=== PATIENT | male | born 1990 | race Two or more races ===

== ENCOUNTER 2023-09-11 15:20 | Inpatient (IN) | payer MEDICAID ==
[~2023-09-11] VITALS: Ht 182.9 cm; Wt 104.3 kg
[2023-09-11 15:20] VITALS: BP 115/80; PULSE 115; RESP 14; TEMP 96.9; O2SAT 100
[2023-09-11] MEDS ORDERED: NALOXONE PFS 2 MG/2 ML SYR ONE (15:58)
[2023-09-11] MEDS ORDERED: NACL 0.9% 1,000 ML IV ONE (16:25)
[2023-09-11] MEDS ORDERED: ONDANSETRON 4 MG/2 ML VIAL IVP ONE (16:40)
[2023-09-11] MEDS ORDERED: ONDANSETRON 4 MG/2 ML VIAL ONE (16:41)
[2023-09-11 17:09] LABS: BASOPHILS # (AUTO) 0.1 K/uL (0.00-0.22)
[2023-09-11 17:13] LABS: BASOPHILS % (AUTO) 0.2 % (0.0-2.0); HEMATOCRIT 44.9 % (36-52); HEMOGLOBIN 14.6 g/dL (12.0-18.0); LYMPHOCYTES # (AUTO) 1.4 K/uL (2.0-11.5); LYMPHOCYTES % (AUTO) 5.7 % (20.5-51.1); MEAN CORPUSCULAR HEMOGLOBIN 28 pg (27-31); MEAN CORPUSCULAR HGB CONC 32 g/dL (33-37); MEAN CORPUSCULAR VOLUME 87.4 fL (80-94); MONOCYTES # (AUTO) 1.8 K/uL (0.8-1.0); MONOCYTES % (AUTO) 7.3 % (1.7-9.3); NEUTROPHILS # (AUTO) 21.1 K/uL (1.8-7.7); NEUTROPHILS % (AUTO) 86.8 % (42.2-75.2); PLATELET COUNT (AUTO) 303 K/uL (140-450); RED BLOOD CELL COUNT(AUTO) 5.14 MIL/uL (4.20-6.10); RED CELL DISTRIBUTION WIDTH 13.8 % (11.6-13.7); WHITE BLOOD COUNT (AUTO) 24.3 K/uL (4.8-10.8)
[2023-09-11 17:34] LABS: ALANINE AMINOTRANSFERASE 53 U/L (12-78); ALBUMIN 4.2 g/dL (3.4-5.0); ALCOHOL, BLOOD < 3 mg/dL (<10); ALKALINE PHOSPHATASE 82 U/L (50-136); ANION GAP 14.2 (8-16); ASPARTATE AMINOTRANSFERASE 65 U/L (15-37); CALCIUM 8.7 mg/dL (8.5-10.1); CARBON DIOXIDE 30.6 mmol/L (21-32); CHLORIDE 103 mmol/L (98-107); CREATININE 1.9 mg/dL (0.6-1.3); GFR ARICAN-AMERICAN 51 mL/min (>90); GFR NON ARICAN-AMERICAN 42 mL/min (>90); GLUCOSE 75 mg/dL (74-106); POTASSIUM 5.8 mmol/L (3.5-5.1); SODIUM SERUM 142 mmol/L (136-145); TOTAL BILIRUBIN 0.3 mg/dL (0.0-1.0); TOTAL PROTEIN, SERUM 7.6 g/dL (6.4-8.2); UREA NITROGEN, BLOOD 32 mg/dL (7-18)
[2023-09-11 17:35] LABS: SALICYLATE < 2.8 mg/dL (2.8-20.0)
[2023-09-11] MEDS ORDERED: INSULIN REGULAR, HUMAN 100 UNIT/ML VIAL IVP ONE (17:55)
[2023-09-11] MEDS ORDERED: DEXTROSE 50% 50 ML SYR IVP ONE ×2 (17:55→18:20)
[2023-09-11] MEDS ORDERED: NACL 0.9% 1,000 ML IV SCH (17:55)
[2023-09-11] MEDS ORDERED: cefTRIAXone 1,000 MG VIAL ONE (18:10)
[2023-09-11 18:16] LABS: ACETAMINOPHEN < 0.5 ug/ml (10-30)
[2023-09-11 19:22] LABS: LACTIC ACID 2.6 mmol/L (0.4-2.0)
[2023-09-11] MEDS ORDERED: ASPIRIN 325 MG TAB PO ONE (19:35)
[2023-09-11] MEDS ORDERED: POTASSIUM CHLORIDE 10 MEQ TABER PO PRN (20:45)
[2023-09-11] MEDS ORDERED: ONDANSETRON 4 MG/2 ML VIAL IM/IVP PRN (20:45)
[2023-09-11] MEDS ORDERED: DOCUSATE SODIUM 100 MG GELCAP PO PRN (20:45)
[2023-09-11] MEDS ORDERED: ZOLPIDEM 5 MG TAB PO PRN (20:45)
[2023-09-11] MEDS ORDERED: ACETAMINOPHEN 325 MG TAB PO PRN (20:45)
[2023-09-11] MEDS ORDERED: guaiFENesin DM 200/20 MG-10 ML 10 ML UDC PO PRN (20:45)
[2023-09-11] MEDS ORDERED: HYDROcodone/APAP 7.5/325 MG 1 TAB PO PRN (20:45)
[2023-09-11] MEDS: NACL 0.9% 1,000 ML IV SCH (21:00)
[2023-09-11 21:24] LABS: APPEARANCE,URINE CLEAR (CLEAR); BILIRUBIN,URINE NEGATIVE (NEGATIVE); BLOOD, URINE NEGATIVE (NEGATIVE); COLOR,URINE YELLOW (YELLOW); LEUKOCYTE ESTERASE ,URINE NEGATIVE (NEGATIVE); NITRITE, URINE NEGATIVE (NEGATIVE); PROTEIN,URINE 1+ (NEGATIVE); UGLUCOSE 1+ (NEGATIVE); UROBILINOGEN,URINE 0.2 EU/dL (0.2 - 1)
[2023-09-11 21:26] LABS: RBC,URINE 0-5 /HPF (0-5)
[2023-09-11 21:27] LABS: BACTERIA,URINE 0-2 /HPF (None Seen); MUCUS,URINE None Seen /LPF (None Seen); SQUAMOUS EPITHELIAL CELL,UR 0-3 (FEW) /LPF (0-3 (FEW)); WBC,URINE 0-5 /HPF (0-5)
[2023-09-11 21:35] LABS: AMPHETAMINE, URINE POSITIVE ng/ml (NEG <=1000); BARBITURATE, URINE NEGATIVE ng/ml (NEG <=200); BENZODIAZEPINE, URINE NEGATIVE ng/mL (NEG <=200); CANNABINOID, URINE NEGATIVE ng/mL (NEG <=50); COCAINE, URINE NEGATIVE ng/mL (NEG <=300); OPIATE, URINE NEGATIVE ng/mL (NEG <=2000); PHENCYCLIDINE SCREEN,URINE NEGATIVE ng/mL (NEG <=25)
[2023-09-11] MEDS ORDERED: SODIUM POLYSTYRENE 15 GM/60 ML UDBTL PO ONE (21:50)
[2023-09-11 22:40] VITALS: PULSE 97
[2023-09-11 22:44] VITALS: BP 113/64; PULSE 97; RESP 18; TEMP 98.1; O2SAT 96
[2023-09-11] MEDS ORDERED: SODIUM POLYSTYRENE 15 GM/60 ML UDBTL ONE (23:09)
[2023-09-12] VITALS: PULSE 93
[2023-09-12 04:00] VITALS: BP 110/60; PULSE 100; PULSE 99; RESP 20; TEMP 98.5; O2SAT 98
[2023-09-12 05:53] LABS: BASOPHILS % (AUTO) 0.2 % (0.0-2.0); EOSINOPHILS % (AUTO) 0.3 % (0.0-4.0); HEMATOCRIT 38.2 % (36-52); HEMOGLOBIN 12.6 g/dL (12.0-18.0); LYMPHOCYTES # (AUTO) 2.5 K/uL (2.0-11.5); LYMPHOCYTES % (AUTO) 17.3 % (20.5-51.1); MEAN CORPUSCULAR HEMOGLOBIN 29 pg (27-31); MEAN CORPUSCULAR HGB CONC 33 g/dL (33-37); MEAN CORPUSCULAR VOLUME 86.6 fL (80-94); MONOCYTES # (AUTO) 1.4 K/uL (0.8-1.0); MONOCYTES % (AUTO) 9.8 % (1.7-9.3); NEUTROPHILS # (AUTO) 10.6 K/uL (1.8-7.7); NEUTROPHILS % (AUTO) 72.4 % (42.2-75.2); PLATELET COUNT (AUTO) 249 K/uL (140-450); RED BLOOD CELL COUNT(AUTO) 4.42 MIL/uL (4.20-6.10); WHITE BLOOD COUNT (AUTO) 14.6 K/uL (4.8-10.8)
[2023-09-12 07:01] LABS: ALBUMIN 3.2 g/dL (3.4-5.0); ANION GAP 8.9 (8-16); CARBON DIOXIDE 32.2 mmol/L (21-32); POTASSIUM 4.1 mmol/L (3.5-5.1); TOTAL BILIRUBIN 0.3 mg/dL (0.0-1.0); TOTAL PROTEIN, SERUM 6.1 g/dL (6.4-8.2)
[2023-09-12] MEDS: NACL 0.9% 1,000 ML IV SCH ×2 (07:10→13:40)
[2023-09-12 08:00] VITALS: BP 126/82; PULSE 89; PULSE 96; RESP 15; TEMP 97.9; O2SAT 99
[2023-09-12] MEDS: PANTOPRAZOLE 40 MG TABEC PO SCH (09:36)
[2023-09-12] MEDS: ENOXAPARIN 40 MG/0.4 ML SYR SUBQ SCH (09:39)
[2023-09-12 16:00] VITALS: BP 128/85; PULSE 85; RESP 18; TEMP 98.2; O2SAT 98
[2023-09-12 20:00] VITALS: PULSE 98; RESP 18; O2SAT 98
[2023-09-13] VITALS: BP 118/78; PULSE 98; RESP 18; TEMP 99; O2SAT 96
[2023-09-13] MEDS: NACL 0.9% 1,000 ML IV SCH (03:19)
[2023-09-13 07:27] LABS: BASOPHILS # (AUTO) 0.1 K/uL (0.00-0.22); BASOPHILS % (AUTO) 0.7 % (0.0-2.0); EOSINOPHILS # (AUTO) 0.1 K/uL (0-0.4); EOSINOPHILS % (AUTO) 0.8 % (0.0-4.0); HEMATOCRIT 42.6 % (36-52); HEMOGLOBIN 13.9 g/dL (12.0-18.0); LYMPHOCYTES % (AUTO) 30.9 % (20.5-51.1); MEAN CORPUSCULAR HEMOGLOBIN 28 pg (27-31); MEAN CORPUSCULAR HGB CONC 33 g/dL (33-37); MONOCYTES % (AUTO) 10.6 % (1.7-9.3); NEUTROPHILS # (AUTO) 5.5 K/uL (1.8-7.7); PLATELET COUNT (AUTO) 253 K/uL (140-450); WHITE BLOOD COUNT (AUTO) 9.7 K/uL (4.8-10.8)
[2023-09-13 07:34] LABS: ALBUMIN 3.1 g/dL (3.4-5.0); ANION GAP 8.1 (8-16); CALCIUM 8.3 mg/dL (8.5-10.1); CARBON DIOXIDE 32.7 mmol/L (21-32); CREATININE 0.9 mg/dL (0.6-1.3); POTASSIUM 3.8 mmol/L (3.5-5.1); TOTAL BILIRUBIN 0.5 mg/dL (0.0-1.0); TOTAL PROTEIN, SERUM 6.3 g/dL (6.4-8.2)
[2023-09-13] MEDS: PANTOPRAZOLE 40 MG TABEC PO SCH (08:14)
[2023-09-13] MEDS: ENOXAPARIN 40 MG/0.4 ML SYR SUBQ SCH (08:16)
[2023-09-13 09:00] VITALS: PULSE 80; PULSE 96; RESP 18; O2SAT 99
[2023-09-13 09:01] VITALS: PULSE 80; PULSE 96
[2023-09-13 09:02] VITALS: BP_SYST 120; BP_SYST 141; BP_DIAS 81; BP_DIAS 98; PULSE 80; PULSE 96; RESP 18; TEMP 97.4; O2SAT 97; O2SAT 99
[2023-09-13 09:46] VITALS: BP 134/77; PULSE 92; RESP 18; TEMP 98.2
[2023-09-13 09:59] VITALS: BP 133/77; PULSE 92; RESP 18; TEMP 97.4; O2SAT 97
== END 2023-09-13 12:00 | disposition home or self-care (01) | DRG 812 ==
LOC: MED 15:20 → EDBD 20:47 → MERGE 20:47 → MTU 20:47
PROVIDERS: ADMIT Student in an Organized Health Care Education/Training Program; ATTEND Student in an Organized Health Care Education/Training Program
DX: T40.411A Poisoning by fentanyl or fentanyl analogs, accidental (unintentional), initial encounter (principal); E87.20 Acidosis, unspecified; I24.89 Other forms of acute ischemic heart disease; R65.10 Systemic inflammatory response syndrome (SIRS) of non-infectious origin without acute organ dysfunction; T43.651A Poisoning by methamphetamines accidental (unintentional), initial encounter; R79.89 Other specified abnormal findings of blood chemistry; I10 Essential (primary) hypertension; F15.10 Other stimulant abuse, uncomplicated; Y92.89 Other specified places as the place of occurrence of the external cause; Z59.00 Homelessness unspecified
CPT/HCPCS: 36415; 71045; 80053; 80305; 81001; 82948; 83605; 84484; 85025; 87040; 87081; 87086; 93005; 96374; 96375; 99291; G0480; G0482; J0696; J1650; J1815; J2310; J2405